=== PATIENT | female | born 1955 | race Caucasian/White ===

== ENCOUNTER 2023-08-09 15:06 | Outpatient (CLI) | payer MEDICARE | END 2023-08-09 15:07 | disposition home or self-care (01) | LOC: CSHMAMMO 15:06 | PROVIDERS: ATTEND Internal Medicine | DX: M85.89 Other specified disorders of bone density and structure, multiple sites (principal) | CPT/HCPCS: 77080 ==

== ENCOUNTER 2024-07-14 09:57 | Outpatient (CLI) | payer MEDICARE | END 2024-07-14 09:58 | disposition home or self-care (01) | LOC: CSHRAD 09:57 | PROVIDERS: ATTEND Internal Medicine | DX: M70.62 Trochanteric bursitis, left hip (principal); R35.0 Frequency of micturition | CPT/HCPCS: 72100; 81001; 87086 ==

== ENCOUNTER 2024-08-29 08:42 | Outpatient (CLI) | payer MEDICARE | END 2024-08-29 08:43 | disposition home or self-care (01) | LOC: CSHMAMMO 08:42 | PROVIDERS: ATTEND Internal Medicine | DX: M81.0 Age-related osteoporosis without current pathological fracture (principal); R92.8 Other abnormal and inconclusive findings on diagnostic imaging of breast; E04.2 Nontoxic multinodular goiter | CPT/HCPCS: 76536; 77065; 77080; G0279 ==